=== PATIENT | female | born 1955 | race Caucasian/White ===

== ENCOUNTER 2016-12-24 12:21 | Day surgery (SDC) | payer OTHER ==
[~2016-12-24] VITALS: Ht 162.6 cm; Wt 45.4 kg
[~2016-12-24 12:21] MED LIST: BALANCED SALT IRRIGATION SOLUTION 500ML BAG (FOR OR EYE MACHINE) As Ordered ONE; CALC500T49 PO; HYDR200T3 PO; LIDOCAINE W/EPINEPHRINE 1% 20ML VIAL As Ordered ONE; LR 1,000 ML IV ONE; MIDAZOLAM INJ 2 MG/2 ML VIAL (J2250) As Ordered ONE; OFLOXACIN 0.3 % (OCUFLOX) OPTH SOL 5ML OD ONE; PHENYLEPHRINE 2.5% OPHTH SOL 2ML OD ONE; PROPARACAINE 0.5% OPHTH SOL 15ML OD ONE; REST0.05 OU; SYSTSOL11 OU; TRIA37.5 PO; TRIAPOW43 PO; TROPICAMIDE 1% OPHTH SOLN 2ML OD ONE; [UNRECOGNIZED DRUG - CODE] OR; fentaNYL 100 MCG/2 ML INJECTION (J3010) As Ordered ONE
[2016-12-24] MEDS ORDERED: POVIDONE-IODINE 5% OPHTH PREP SOL 30ML As Ordered ONE (15:33)
[2016-12-24] MEDS: mitoMYcin 0.2 MG/VIAL KIT FOR OPHTHALMIC USE (J7315 PER 0.2MG) As Ordered ONE ×2 (16:32→16:35)
[2016-12-24] MEDS ORDERED: ONDANSETRON 4MG/2ML VIAL (J2405) As Ordered ONE (17:43)
[2016-12-24 17:55] VITALS: BP 128/60
[2016-12-24] MEDS ORDERED: ACETAMINOPHEN TAB 650MG DOSE (2X325MG) PO PRN (18:00)
[2016-12-24] MEDS ORDERED: LR 1,000 ML IV SCH (18:00)
[2016-12-24] MEDS ORDERED: ONDANSETRON 4MG/2ML VIAL (J2405) IV PRN (18:00)
--- NOTE | 2016-12-27 14:19 | RO ---
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 PROCEDURE: Excision of pterygium of the right eye and use of mitomycin C 0.1 mL (0.02%) of the right eye. ANESTHESIA: Local with monitored anesthesia care (MAC), subconjunctival 1% lidocaine with epinephrine approximately 0.5 mL. SURGEON: Dr. Haim Fung EARLY CHILDHOOD SPECIALIST: DESCRIPTION OF PROCEDURE: The patient was identified in the preoperative area. The consents were reviewed, and the correct eye was marked. The patient received topical tetracaine in the preoperative area, and the patient was transferred to the operating room. The eye was prepped and draped in a sterile fashion. The eyelids were isolated with Tegaderm, and a wire lid speculum was placed. 1% lidocaine with epinephrine on a 1 mL syringe with a 30-gauge needle was used to inject local anesthesia subconjunctivally for approximately 0.3 ml, and then the anesthesia was spread with a cotton-tip applicator. At that time, a Diandra scissors and blunt forceps were used to remove the head of the pterygium from the nasal corneal limbus, and then the specimen was sent to pathology. Using a K[place]en blade and 0.12 forceps, the cornea was gently polished and smoothed; and any remaining pieces of the pterygium were discarded. At that time, gentle wet-field cautery was applied to the scleral bed, and a small amount of Tenon capsule was removed from the conjunctival edge. At that time, the defect was measured to be approximately 1 mm, and the decision was made to place mitomycin C and not place an amniotic membrane graft due to the small conjunctival defect. Mitomycin C. 0.02% concentration was injected in the conjunctival edge for approximately 0.1 mL and then flushed away meticulously with three bottles of balanced salt solution (BSS). A bandage contact lens was placed on the eye, and the wire lid speculum was removed, and the drape was removed. The patient was sent to the postanesthesia care unit (PACU) in a stable condition. MERCEDEZ
[2017-01-07] MEDS ORDERED: PRED1SUS OD (13:55)
== END 2016-12-24 18:30 | disposition home or self-care (01) ==
LOC: M SDC 12:21
PROVIDERS: ATTEND Ophthalmology
DX: H11.001 Unspecified pterygium of right eye (principal); I10 Essential (primary) hypertension; M32.9 Systemic lupus erythematosus, unspecified; M35.00 Sjogren syndrome, unspecified; M26.609 Unspecified temporomandibular joint disorder, unspecified side; R06.83 Snoring; Z79.899 Other long term (current) drug therapy; Z78.0 Asymptomatic menopausal state
CPT/HCPCS: 65420; 88304; J2250; J2405; J3010; J7315

== ENCOUNTER → 2017-01-07 | Day surgery (SDC) | payer OTHER ==
[~2017-01-07] VITALS: Ht 162.6 cm; Wt 45.4 kg
[~2017-01-07] MED LIST changes: -BALANCED SALT IRRIGATION SOLUTION 500ML BAG (FOR OR EYE MACHINE) As Ordered ONE; +LIDOCAINE 2% W/EPIN INJ 20ML **PRES FREE As Ordered ONE; -LIDOCAINE W/EPINEPHRINE 1% 20ML VIAL As Ordered ONE; -LR 1,000 ML IV ONE; +LR 500 ML IV ONE; -OFLOXACIN 0.3 % (OCUFLOX) OPTH SOL 5ML OD ONE; +OFLOXACIN 0.3 % (OCUFLOX) OPTH SOL 5ML OS ONE; -PHENYLEPHRINE 2.5% OPHTH SOL 2ML OD ONE; +PHENYLEPHRINE 2.5% OPHTH SOL 2ML OS ONE; +POVIDONE-IODINE 5% OPHTH PREP SOL 30ML As Ordered ONE; +PRED1SUS OD; -PROPARACAINE 0.5% OPHTH SOL 15ML OD ONE; +PROPARACAINE 0.5% OPHTH SOL 15ML OS ONE; +TOBRADEX OPHTH OINT 3.5 GM As Ordered ONE; -TROPICAMIDE 1% OPHTH SOLN 2ML OD ONE; +TROPICAMIDE 1% OPHTH SOLN 2ML OS ONE; +mitoMYcin 0.2 MG/VIAL KIT FOR OPHTHALMIC USE (J7315 PER 0.2MG) As Ordered ONE
[2017-01-07 13:56] VITALS: BP 161/74
--- NOTE | 2017-01-08 21:11 | RO ---
DATE OF PROCEDURE: 01/07/2017 PREOPERATIVE DIAGNOSIS: Peripheral pterygium of the left eye. POSTOPERATIVE DIAGNOSIS: Peripheral pterygium of the left eye. OPERATIVE PROCEDURE: Excision of pterygium left eye with placement of amniotic membrane graft and use of mitomycin C 0.01% concentration. SURGEON: Haim Fung DO DISPUTE RESOLUTION SPECIALIST: None. ANESTHESIA: Local with monitored anesthesia care (MAC) and subconjunctival anesthesia 2% lidocaine with epinephrine. DESCRIPTION OF PROCEDURE: The patient was seen in the preoperative area. The consents were reviewed and the correct eye was marked. The patient received topical tetracaine in the preoperative area and the patient was transferred to the operating room. The patient was prepped and draped in a sterile fashion. Tegaderm tape was used to isolate the upper and lower eyelids and wire lid speculum was placed to retract the eyelids. Subconjunctival lidocaine with epinephrine 2% was injected superior and inferior to the pterygium and then spread with a cotton tip applicator. At that time, Diandra scissors and 0.12 forceps were used to remove the medial head of the pterygium from the cornea, and then specimen was sent to pathology at that time. A #15 blade was used to gently french the cornea epithelium until smooth. Wet field cautery was then applied lightly to any bleeders on the scleral bed and mitomycin C was placed at the retracted conjunctival edge, for approximately 0.1 mL with a concentration of 0.01% and then washed away meticulously with three bottles of balanced salt solution (BSS). After the mitomycin C was washed away, the conjunctival defect was measured to be approximately 4 x 7 mm and a amniotic membrane graft was appropriately sized and placed on the scleral bed. Tisseel glue was placed underneath this and gently smoothed to adhere the graft into position. Two #10-0 nylon sutures were used to tack the free conjunctiva back to the limbus and the ends were left long. At that time, a bandage contact lens was placed on the cornea and the patient was discharged to the PACU in a stable condition. MERCEDEZ
== END | disposition home or self-care (01) ==
LOC: M SDC 12:56
PROVIDERS: ATTEND Ophthalmology
DX: H11.042 Peripheral pterygium, stationary, left eye (principal); I10 Essential (primary) hypertension; M32.9 Systemic lupus erythematosus, unspecified; M35.00 Sjogren syndrome, unspecified; M26.609 Unspecified temporomandibular joint disorder, unspecified side; R06.83 Snoring; Z79.899 Other long term (current) drug therapy; Z78.0 Asymptomatic menopausal state
CPT/HCPCS: 65426; 65778; 88305; C1762; J2250; J3010; J7315